=== PATIENT | male | born 1960 | race Caucasian/White ===

== ENCOUNTER 2024-04-03 21:38 | Emergency (ER) | payer OTHER, SELFPAY ==
[2024-04-03 21:38] VITALS: BP 184/92; PULSE 75; RESP 16; TEMP 37.1; O2SAT 95; BMI 45.6
--- NOTE | 2024-04-03 23:15 | RAD_ITS ---
INDICATION: left rib pain EXAMINATION/TECHNIQUE: X-RAY - XR Chest 2 Views COMPARISON: 03/29/2013, 04/06/2013. FINDINGS: LIFE-SUPPORT AND LINES: 1. None HEART AND VESSELS: The cardiac silhouette, pulmonary vasculature have normal appearance. No evidence of congestive failure. LUNGS AND PLEURAL SPACES: Persistent area of hazy density along lateral aspect of the RIGHT hemithorax without significant interval change. This may represent an area of pleural thickening or associated with the major fissure. Findings however are stable. Remaining lung zones are clear. No pulmonary mass is noted. MEDIASTINUM AND HILAR REGIONS: No masses adenopathy noted. No areas of calcification. Visualized upper airway is normal in position. BONY ELEMENTS: No acute bony changes noted. RAD/Chest PA and Lateral IMPRESSION: 1. No evidence congestive failure airspace consolidation or effusion. 2. Stable area of hazy density along the periphery of the RIGHT mid chest. This may represent chronic pleural thickening or thickening associated with the RIGHT major fissure. Electronically Signed: Yan Mendieta MD at 23:45 EDT ,
[2024-04-03 23:40] VITALS: RESP 15
--- NOTE | 2024-04-04 00:01 | ED.VIS.CHEST ---
HPI History of Present Illness Chief Complaint: Chest Other [facility] Medical History (Updated 04/03/24 @ 21:51 by Tracey Crandall) Hypertension Allergy/AdvReac Type Severity Reaction Status Date / Time sulfamethoxazole (From Allergy Severe Anaphylaxis Verified 04/03/24 21:39 Bactrim) trimethoprim (From Bactrim) Allergy Severe Anaphylaxis Verified 04/03/24 21:39 Social History Smoking Status: Never smoker EXAM Physical Exam Const Vital Signs: 04/03/24 21:38 04/03/24 23:40 Temperature 98.7 F Temperature Source Temporal Pulse Rate 75 Respiratory Rate 16 15 Blood Pressure 184/92 H Blood Pressure Mean 122 Pulse Ox 95 Oxygen Delivery Method Room Air [facility] MDM MDM Narrative Medical decision making narrative: HISTORY OF PRESENT ILLNESS: 63-year-old male presents with left-sided rib pain after sneezing. Denies any falls or trauma. Denies any chest pain shortness of breath or leg swelling. REVIEW OF SYSTEMS: Pertinent positives: Left rib pain Pertinent negatives: Leg swelling, chest pain or syncope PHYSICAL EXAM: Nursing triage notes reviewed, Vital signs reviewed Constitutional: please see mdm HENT: MMM Eyes: Pupils equal round and reactive to light, Extraocular muscles intact Neck: No stridor, no JVD, full neck ROM Lungs: TTP of left rib margin, no flail chest or crepitus noted the chest clear to auscultation, No wheezing or rales. No increased work of breathing, no conversational dyspnea, no accessory muscle use, no nasal flaring. No respiratory distress noted Heart: Regular rate and rhythm, No murmurs, No rubs and No gallops, 2+ distal pulses (radial, femoral, posterior tibial) in all extremities Abdomen: Soft, there is no tenderness, rigidity, rebound or guarding, no obvious peritoneal signs, no palpable pulsatile abdominal masses, no auscultated abdominal bruit : No CVAT Extremities: No edema Neuro: No focal neurological deficits, cranial nerves II through XII intact, 5/5 strength in all extremities. Intact sensation to light touch in all extremities, 2+ reflexes bilateral patella tendons. Normal gait. No ataxia. Skin: No rash or lesions noted MEDICAL DECISION MAKING: Chief Complaint: Left rib pain External records reviewed: No recent ED visits or hospitalizations Factors affecting care: Peptic ulcer disease Social determinants of health: none History obtained from others: none Consults: none MDM Narrative: Patient was initially hypertensive with a blood pressure 180/92 otherwise afebrile and nontoxic-appearing. Exam with TTP over left rib margin. I considered the following differential diagnosis: Rib fracture, dislocation, musculoskeletal injury, pneumothorax ALL IMAGES (IF OBTAINED) HAVE BEEN PERSONALLY REVIEWED AND INTERPRETED BY MYSELF. X-ray of the patient's chest was read reviewed myself shows no evidence of obvious rib fracture, pneumonia or pneumothorax. Radiologist agrees my interpretation. The synthesis of the patient's history, physical exam, imaging studies suggest likely musculoskeletal strain. Will give instructions to take Tylenol, ibuprofen, lidocaine patches, incentive spirometry and follow with his primary care physician. Pneumonia return precautions were discussed. The patient and/or family, caregivers express understanding. The patient and/or family, caregivers agrees with the plan. Shared decision making: I will have a discussion with the patient and or visitors regarding risk/benefits of further testing or admission. They will be made aware of of the risk/benefits inherent in this decision they will be given the opportunity to voice understanding. Total critical care time today provided was at least 0 minutes. This excludes separately billable procedures. Critical care time (if documented) is secondary to the patient having high probability of clinically significant/life threatening deterioration in the patient's condition which required my urgent intervention. Impression: 1. Rib contusion 2. Elevated blood pressure Dispo: Discharge home This note was generated with [employer] dictation software. It may contain incorrect words, spelling, and punctuation that were not noted in review of the chart prior to signing. Radiography Diagnostic Testing: Clinical Impression(s) from Imaging Studies Chest X-Ray 04/03/24 23:15 IMPRESSION: 1. No evidence congestive failure airspace consolidation or effusion. 2. Stable area of hazy density along the periphery of the RIGHT mid chest. This may represent chronic pleural thickening or thickening associated with the RIGHT major fissure. Electronically Signed: Yan Mendieta MD at 23:45 EDT , Discharge Plan Triage Chief Complaint: Chest Other ED Provider: Steven Avery Dx/Rx/DC Orders Primary Care Provider: Kaden Coleman Referrals: Kaden Coleman MD [Primary Care Provider] - Print Language: Mexican
[2024-04-04 00:33] VITALS: BP 185/90; PULSE 79; RESP 18; TEMP 36.8; O2SAT 99
== END 2024-04-04 00:34 | disposition home or self-care (01) ==
PROVIDERS: Emergency Provider Emergency Medicine; PCP Internal Medicine; Visit Provider Emergency Medicine
DX: S20.219A Contusion of unspecified front wall of thorax, initial encounter (principal); I10 Essential (primary) hypertension; X58.XXXA Exposure to other specified factors, initial encounter
CPT/HCPCS: 71046; 99283